=== PATIENT | male | born 1940 | race Caucasian/White ===

== ENCOUNTER → 2017-01-18 | Outpatient (CLI) | payer OTHER ==
[~2017-01-18] MED LIST: ASPI325T17 PO; DABI150C PO; FURO40TA6 PO; LISI-167 PO; METO50TA82 PO; MULT-6 PO; NAPR220C PO; PANT40TA3 PO; POTA10TA11 PO; PROP60CA PO; SIMV10TA3 PO
== END | disposition home or self-care (01) ==
LOC: CFH 16:09
PROVIDERS: ATTEND Internal Medicine
DX: M71.22 Synovial cyst of popliteal space [Baker], left knee (principal)

== ENCOUNTER → 2017-12-06 | Outpatient (CLI) | payer OTHER | END | disposition home or self-care (01) | LOC: CVU 06:50 | PROVIDERS: ATTEND Internal Medicine | DX: Z01.818 Encounter for other preprocedural examination (principal); I70.203 Unspecified atherosclerosis of native arteries of extremities, bilateral legs; I10 Essential (primary) hypertension; E78.5 Hyperlipidemia, unspecified | CPT/HCPCS: 93922; 93925 ==

== ENCOUNTER → 2018-02-02 | Outpatient (CLI) | payer OTHER | END | disposition home or self-care (01) | LOC: CVU 12:37 | PROVIDERS: ATTEND Internal Medicine Cardiovascular Disease | DX: I34.0 Nonrheumatic mitral (valve) insufficiency (principal); I51.7 Cardiomegaly; E78.5 Hyperlipidemia, unspecified | CPT/HCPCS: 93306 ==

== ENCOUNTER → 2018-09-11 | Outpatient (CLI) | payer OTHER ==
[~2018-09-11] MED LIST changes: -NAPR220C PO; +NAPR220C62 PO
== END | disposition home or self-care (01) ==
LOC: RAD 15:18
PROVIDERS: ATTEND Internal Medicine
DX: R06.02 Shortness of breath (principal); Z95.0 Presence of cardiac pacemaker
CPT/HCPCS: 71046

== ENCOUNTER 2018-09-17 15:13 | Outpatient (CLI) | payer OTHER | END 2018-09-17 23:59 | disposition home or self-care (01) | LOC: CVU 15:13 | PROVIDERS: ATTEND Internal Medicine Cardiovascular Disease | DX: I80.3 Phlebitis and thrombophlebitis of lower extremities, unspecified (principal); I50.30 Unspecified diastolic (congestive) heart failure; I10 Essential (primary) hypertension | CPT/HCPCS: 93306 ==

== ENCOUNTER 2019-02-25 16:04 | Outpatient (CLI) | payer OTHER | END 2019-02-25 23:59 | disposition home or self-care (01) | LOC: RAD 16:04 | PROVIDERS: ATTEND Internal Medicine | DX: R60.0 Localized edema (principal) ==

== ENCOUNTER 2019-03-15 07:56 | Outpatient (CLI) | payer OTHER | END 2019-03-15 23:59 | disposition home or self-care (01) | LOC: RAD 07:56 | PROVIDERS: ATTEND Internal Medicine | DX: M51.36 Other intervertebral disc degeneration, lumbar region (principal); E88.2 Lipomatosis, not elsewhere classified; M54.5 Low back pain; M54.2 Cervicalgia; M47.816 Spondylosis without myelopathy or radiculopathy, lumbar region; M47.812 Spondylosis without myelopathy or radiculopathy, cervical region; M48.061 Spinal stenosis, lumbar region without neurogenic claudication; M48.02 Spinal stenosis, cervical region; M25.78 Osteophyte, vertebrae | CPT/HCPCS: 72141; 72148 ==

== ENCOUNTER → 2020-08-31 | Outpatient (CLI) | payer OTHER ==
[~2020-08-31] MED LIST changes: +SIMV10TA18 PO; -SIMV10TA3 PO
== END | disposition home or self-care (01) ==
LOC: RAD 15:22
PROVIDERS: ATTEND Neurological Surgery
DX: M48.07 Spinal stenosis, lumbosacral region (principal); M47.815 Spondylosis without myelopathy or radiculopathy, thoracolumbar region; M47.818 Spondylosis without myelopathy or radiculopathy, sacral and sacrococcygeal region
CPT/HCPCS: 72148